=== PATIENT | male | born 1985 | race Caucasian/White ===

== ENCOUNTER 2024-03-13 14:42 | Emergency (ER) | payer OTHER, SELFPAY ==
[2024-03-13 14:50] VITALS: BP 149/89
--- NOTE | 2024-03-13 15:50 | ED.GENMED ---
History of Present Illness
General
Chief Complaint: Fall
Source: patient
Exam Limitations: none
Time Seen by Provider: 03/13/24 15:17
Nursing documentation reviewed up to this point in time: agreed with
History of Present Illness
History of Present Illness:
38 y/o M with h/o CKD, HTN, chronic back pain disc herniation lumbar region (last mri 4 years ago)
was stepping out of his work truck and slipped and landed on left buttocks/back region yesterday
has had worsening acute on chronic pain since
nonradiating lower back pain
no numbnes/tingling/weakness in legs
has had cortisone shots and PT previously, most recent shot a few mo ago
pt avoids NSAIDs because of his creatinine
did not take any tylenol
says tramadol has helped previously
no incontinence, fever, IVDA
Past History
Past History
ED Past Medical History: None
Social History
Tobacco: Non-smoker
Alcohol: None
Drug: None
Personal: Single
Living: with family
Employment: Employed
Review of Systems
Review of Systems
Allergies reviewed?: Yes
All Other Systems: Not applicable
Phy Exam
Physical Exam
Physical Exam:
GENERAL: Alert , in no apparent distress, comfortable at rest
HEAD: NCAT
NECK: no midline tenderness, active ROM intact, no paraspinal muscle tenderness;
CARDIAC: Regular rate and rhythm, no edema
LUNGS: Clear breath sounds bilaterally, no acute respiratory distress, no wheezes/rales/rhonchi
ABDOMEN: Soft, without focal tenderness, no r/g, no cvat, normal bowel sounds, nondistended
NEUROLOGICAL: Alert and oriented, no focal neuro deficits, CN intact, 5/5 strength, sensation intact, ambulation slightly limping
SKIN: Warm and dry, no lesions back, no bruising
MUSCULOSKELETAL: No edema, well perfused.
Patient has no tenderness to palpation of the hips b/l
Back: mild lower lumbar midline and paraspinal muscle tenderness
neg straigh tleg raise b/l
pain with flexion/changing position
normal sensation
PSYCH: Normal and appropriate interaction.
Course
Orders/Labs/Results
Orders:
Orders
03/13/24 14:55
Lumbar Spine Complete, 4 View [CR Lumbar Spine Comp Min 4 Vw*] Urgent
Comment:
Reason For Exam: fall
03/13/24 15:50
Bedside Glucose- Treatment ONCE
03/13/24 16:29
Acetaminophen [Tylenol] 1,000 mg PO NOW STA
Prednisone [Deltasone] 50 mg PO NOW STA
Vital Signs
Initial and Last Documented VS:
Initial Vital Signs
Temp Pulse Resp BP Pulse Ox
98.3 F 82 16 149/89 96
03/13/24 14:50 03/13/24 14:50 03/13/24 14:50 03/13/24 14:50 03/13/24 14:50
Last Documented Vital Signs
Temp Pulse Resp BP Pulse Ox
98.3 F 72 20 129/84 100
03/13/24 14:50 03/13/24 16:43 03/13/24 16:43 03/13/24 16:43 03/13/24 16:43
MDM/Problems Addressed
Differential Diagnosis Includes:
lumbar liz, fracture, disc herniation
MDM/Problems Addressed:
38 y/o M
chronic back pain secondary to lumbar disc disease
htn
mild cr elevation
here with lower bakc pain after fall backwards yesterday
inc his chronic pain
nonradiating
no red flag sypmtoms
worse with changing position
nothing taken for pain
has previously had cortisone injections
is supposed to f/u with nsg but hasn't yet
pain with movmeent of back
neg straight leg raise
normal strength and sensation
will check accucheck then try round of steroids
discussed pain cotnroll
will do tylenol adn tramadol which pt has had previously and toelrated
*Critical Care Note
Total Time (30-74mins, 75-104mins- exclusive of procedures): Not Applicable
ED Attending Note
-
Portions of this chart may have been created with voice recognition software.� Occasional wrong word or��sound alike� substitutions may have occurred due to the inherent limitations of voice recognition software.
Discharge Plan
Departure
Patient Disposition: Home (Routine Discharge)
Date of Disposition: 03/13/24
Time of Disposition: 16:29
Patient with high blood pressure during this ER visit?: No
Condition: Fair
Covid-19: Not Applicable
Discharge Problem:
Lumbar spine strain, Fall
Instructions: Back Muscle Strain (DC)
Prescriptions:
New
tramadol 50 mg tablet
50 mg PO Q6H PRN (Reason: Pain) Qty: 15 0RF
prednisone 50 mg tablet
50 mg PO DAILY Qty: 5 0RF
No Action
penicillin V potassium 500 mg tablet
500 mg PO QID Qty: 28 0RF
Referrals:
UNKNOWN - PT DOES,NOT KNOW [Unknown Provider] -
Activity Restrictions/Additional Instructions:
YOU SHOULD FOLLOW UP WITH NEUROSURGERY OR ORTHO SPINE FOR FURTHER EVLUATION OF YOUR CHRONIC PAIN
YOUR XRAYS DID NOT SHOW ANY OBVIOUS FRACTURES
YOU SHOULD TRY THE PREDNISONE ONCE A DAY FOR 5 DAYS
FOR PAIN TRY TYLENOL 2-3 TIMES A DAY
IF NEEDED ALSO CAN DO TRAMADOL EVERY 6 HOURS (4 TIMES A DAY) NEEDED
RETURN FOR: SEVERE PAIN, INABILITY TO WALK, INCONTINENCE OR URINE, WEAKNESS IN LEGS OR ANY CONCERNS.
Interventions
Interventions:
*Risk Screen - Suicide Last Done: 03/13/24 14:50
*General Assessment Last Done: 03/13/24 14:50
*Neglect/Abuse Screening Last Done: 03/13/24 14:50
*Nursing Disposition Last Done: 03/13/24 16:43
ED-Musculoskeletal Assessment Last Done: 03/13/24 15:34
ED- Neurological Assessment Last Done: 03/13/24 15:34
ED-Skin Assessment Last Done: 03/13/24 15:34
Discharge Date and Time
Discharge Date/Time: 03/13/24 16:44
Print Language: MOROCCAN
[2024-03-13 16:07] LABS: Glucose - Point of Care 85 mg/dl (70-99)
[2024-03-13] MEDS: DELTASONE 50 MG PO (16:35)
[2024-03-13] MEDS: TYLENOL 1000 MG PO (16:35)
[2024-03-13 16:43] VITALS: BP 129/84
== END 2024-03-13 16:44 | disposition home or self-care (01) ==
LOC: EMR 14:42
PROVIDERS: EMERGENCY PHYSICIAN Emergency Medicine; FAMILY PHYSICIAN Family Medicine
DX: S39.012A Strain of muscle, fascia and tendon of lower back, initial encounter (principal); X58.XXXA Exposure to other specified factors, initial encounter; I12.9 Hypertensive chronic kidney disease with stage 1 through stage 4 chronic kidney disease, or unspecified chronic kidney disease; N18.9 Chronic kidney disease, unspecified
CPT/HCPCS: 99283; 72110; 82962

== ENCOUNTER 2024-08-29 07:42 | Emergency (ER) | payer OTHER, SELFPAY ==
[2024-08-29 07:43] VITALS: BP 193/108
--- NOTE | 2024-08-29 08:37 | ED.GENMED ---
History of Present Illness
General
Chief Complaint: Abdominal Pain
Source: patient
Exam Limitations: none
Time Seen by Provider: 08/29/24 08:21
History of Present Illness
History of Present Illness:
38yoM with a history of hypertension presenting for evaluation of multiple complaints. He reports left kidney pain. He is unsure when exactly this started because he has a bad back and it is difficult for him to differentiate between the two. He
reports some discomfort in his left lower quadrant primarily with coughing. He also has noticed that his urine appears to be bubbly and smells like popcorn for the past week. Additionally, he reports neuropathy, skin itching, and elevated blood
pressure. His SBP is typically in the 160s but this morning it was in the 190s. His main concern is his kidney function. His creatinine levels have been elevated in the past. Last creatinine in October 2023 was 1.2. 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
eats a carnivore/keto diet. He stopped taking protein and creatine supplements about a week ago.
Past History
Past History
ED Past Medical History: None
Social History
Tobacco: Non-smoker
Alcohol: None
Drug: None
Personal: Single
Living: with family
Employment: Employed
Phy Exam
General Physical Exam
General Presentation: well appearing and no apparent distress
General age: appears stated age
General Skin: warm and dry
General Habitus: normal
General Mental: alert
ENT Exam
ENT Exam: normocephalic
Cardiovascular Exam
Cardiovascular Exam: regular rate/rhythm, no murmur and normal peripheral pulses (2+ radial and PT pulses bilaterally)
Pulmonary Exam
Pulmonary Exam: lungs clear, no respiratory distress, no rales, no crackles and no rhonchi
Gastrointestinal Exam
Gastrointestinal Exam: non tender, soft, non distended and no cva tenderness
Neurological Exam
Neurological Exam: alert
Vahid Coma Scale
Eye Opening: Spontaneous
Verbal Response: Oriented
Motor Response: Obeys Commands
GCS Total Score: 15
Skin Exam
Skin Exam: normal color and warm/dry
Psychiatric Exam
Psychiatric Exam: normal mood/affect
Course
Orders/Labs/Results
Orders:
Orders
08/29/24 08:36
Electrocardiogram (*1) Urgent
Reason for Study: Other
Other Reason for Exam: hypertension
CT Abd/pel Without Iv Or Oral Urgent
Comment:
Reason For Exam: L flank pain, LLQ pain
EKG- Treatment ONCE
0.9% Sodium Chloride 1000 ml [Nss] 1,000 ml IV BOLUS
08/29/24 09:03
Complete Blood Count/With Diff Urgent
Comprehensive Metabolic Panel Urgent
Urinalysis Reflex To Culture Urgent
Date Specimen was Collected: 08/29/24
Time Specimen was Collected: 08:39
Urine Microscopic Reflex Cult Urgent
Abnormal Lab Results
08/29/24
09:03
WBC 4.3 L 10^3/uL
(4.8-10.8)
MCH 31.6 H pg
(27.0-31.0)
Absolute Lymphs (auto) 1.0 L 10^3/uL
(1.2-3.4)
BUN 27 H mg/dl
(9-20)
Total Bilirubin 1.8 H mg/dl
(0.2-1.3)
Albumin 5.1 H g/dl
(3.5-5.0)
Urine Albumin (Reflex) 1+ A
(Neg - Trace)
08/29/24 09:03
08/29/24 09:03
Vital Signs
Initial and Last Documented VS:
Initial Vital Signs
Temp Pulse Resp BP Pulse Ox
97.2 F 94 18 193/108 100
08/29/24 07:43 08/29/24 07:43 08/29/24 07:43 08/29/24 07:43 08/29/24 07:43
Last Documented Vital Signs
Temp Pulse Resp BP Pulse Ox
97.2 F 86 20 149/87 98
08/29/24 07:43 08/29/24 09:08 08/29/24 09:08 08/29/24 09:08 08/29/24 09:08
MDM/Problems Addressed
Differential Diagnosis Includes:
38yoM here with multiple complaints including L kidney pain, bubbly urine, elevated blood pressure. Mainly concerned about his kidney function. He is hypertensive with otherwise normal vital signs. He is well appearing in no distress. Exam is
reassuring. Differential diagnosis includes but is not limited to: EARNESTINE, UTI, pyelonephritis, hypertensive urgency, anxiety
Initial ED plan: Check CBC, CMP, UA, EKG, and CT abdomen without contrast to evaluate for stones. IV fluid bolus.
*Critical Care Note
Total Time (30-74mins, 75-104mins- exclusive of procedures): Not Applicable
Update Note
Update Note:
Labs reveal a BUN of 27 and a creatinine of 1.1. There is 1+ protein in his urine. Patient reports he has a history of this dating back to his childhood and both his brother and father also have this. 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
Interestingly, CT shows a 1 mm right UVJ stone without hydronephrosis. He has no symptoms on the right side. Left kidney appears normal. No indication for hospitalization at this time. Patient does admit to eating 250 g of protein daily.
Unclear if this is the culprit of his proteinuria. Will refer to nephrology for follow-up. He was also advised to follow-up with urology and his PCP. ED return precautions discussed. Patient in agreement with plan and was discharged in stable
condition.
ED Attending Note
-
Portions of this chart may have been created with voice recognition software.� Occasional wrong word or��sound alike� substitutions may have occurred due to the inherent limitations of voice recognition software.
Discharge Plan
Departure
Patient Disposition: Home (Routine Discharge)
Date of Disposition: 08/29/24
Time of Disposition: 09:51
Patient with high blood pressure during this ER visit?: Yes
Discharge Problem:
Calculus of distal right ureter, Proteinuria
Instructions: Kidney stones in adults
Prescriptions:
No Action
penicillin V potassium 500 mg tablet
500 mg PO QID Qty: 28 0RF
tramadol 50 mg tablet
50 mg PO Q6H PRN (Reason: Pain) Qty: 15 0RF
prednisone 50 mg tablet
50 mg PO DAILY Qty: 5 0RF
Referrals:
Jamir Archer DO [Family Provider] -
Teo Meyer MD [Active] -
Hoang Ta DO [Non-Admitting Privileges] -
Activity Restrictions/Additional Instructions:
Please follow-up with your family doctor, urology, and nephrology. Return to the ER with any new or worsening symptoms.
Interventions
Interventions:
*Risk Screen - Suicide Last Done: 08/29/24 07:43
*General Assessment Last Done: 08/29/24 07:43
*Neglect/Abuse Screening Last Done: 08/29/24 07:43
WX-Gyzwqh-Ejhvgzayna Assessment Last Done: 08/29/24 09:08
Discharge Date and Time
Print Language: HONDURAN
[2024-08-29] MEDS: NSS 1000 IV (09:07)
[2024-08-29 09:08] VITALS: BP 149/87; BMI 28.3
[2024-08-29 09:12] LABS: % Basophils 0.5 % (0-2); % Eosinophils 0.9 % (0-6); % Immature Granulocytes 0.2 % (0-0.5); % Monocytes 7.4 % (1.7-9.3); Absolute Monocytes 0.3 10^3/uL (0.1-0.6); Absolute Neutrophils 2.9 10^3/uL (1.4-6.5); Hematocrit 46.4 % (39.0-52.0); Hemoglobin 16.1 g/dL (13.0-18.0); Mean Corp Hgb Conc. 34.7 g/dL (33.0-37.0); Mean Corpuscular Hgb 31.6 pg (27.0-31.0); Mean Corpuscular Volume 91.2 fL (80.0-94.0); Mean Platelet Volume 10.3 fL (7.4-10.4); Nucleated Red Blood Cells % 0 % (-); Platelet Count 197 10^3/uL (130-400); Red Blood Cell Count 5.09 10^6/uL (4.70-6.10); Red Cell Dist. Width 12.8 % (11.5-14.5); White Blood Cell Count 4.3 10^3/uL (4.8-10.8)
[2024-08-29 09:14] LABS: Urine Albumin 1+ (Neg - Trace); Urine Bilirubin Negative (Negative); Urine Character Clear (Clear); Urine Color Yellow; Urine Glucose Negative (Negative); Urine Ketone Negative (Negative); Urine Leukocyte Negative (Negative); Urine Nitrite Negative (Negative); Urine Occult Blood Negative (Negative); Urine Urobilinogen Negative (Neg - 1+)
[2024-08-29 09:30] LABS: ALT (SGPT) 35 U/L (0-50); AST (SGOT) 26 U/L (17-59); Albumin 5.1 g/dl (3.5-5.0); Alkaline Phosphatase 56 U/L (38-126); Blood Urea Nitrogen 27 mg/dl (9-20); Calcium 9.3 mg/dl (8.4-10.2); Carbon Dioxide 27 mmol/L (22-30); Chloride 102 mmol/L (98-107); Estimated Creatinine Clearance 99 ml/min; Glucose 89 mg/dl (70-99); Potassium 4.4 mmol/L (3.5-5.1); Sodium 138 mmol/L (135-145); Total Bilirubin 1.8 mg/dl (0.2-1.3); Total Protein 7.6 g/dl (6.3-8.2); eGFR > 60.00
[2024-08-29 10:21] LABS: Urine Amorphous Seen; Urine Red Blood Cell 0-2 /HPF (0-2); Urine Squamous Cell 0-2 /LPF (Few); Urine White Cell 0-2 /HPF (0-5)
[2024-08-29 10:42] VITALS: BP 143/87
== END 2024-08-29 10:44 | disposition home or self-care (01) ==
LOC: EMR 07:42
PROVIDERS: Physician Assistant; EMERGENCY PHYSICIAN Emergency Medicine; FAMILY PHYSICIAN Family Medicine
DX: N20.1 Calculus of ureter (principal); R80.9 Proteinuria, unspecified; I10 Essential (primary) hypertension
CPT/HCPCS: 99284; 96360; 74176; 80053; 81003; 81015; 85025; 93005